=== PATIENT | female | born 1945 | race Caucasian/White ===

== ENCOUNTER 2023-07-18 15:42 | Outpatient (CLI) | payer MEDICARE, BC, SELFPAY ==
--- NOTE | 2023-07-18 16:00 | US_ITS ---
Patient: AURE COLLAZO Facility:?[facility] Patient ID:?[id number] Site Patient ID:?[id number]. Site :?[id number] Study:?US-OB Pelvis TV OB<14wks-07/18/2023 4:52:23 PM Ordering Physician:Brittany Molina Final Report: INDICATION: post menopausal bleeding COMPARISON: none TECHNIQUE: 2D jalloh scale and color Doppler images were acquired of the pelvis using a transabdominal and transvaginal approach. FINDINGS: Sonographic images demonstrate a normal size and smooth outer contour of the uterus. Uterus measures 4.9 cm in length by 2.1 cm in AP diameter by 3.8 cm in transverse dimension. The myometrium has a normal uniform echotexture. The endometrial lining measures 6.2 mm in composite thickness. Fluid is present within the endometrial canal. Cervical nabothian cysts noted. Hypoechoic nodular focus associated with the endometrium measuring 9 x 3 x 5 millimeters. No internal vascularity within this structure. The right ovary measures 1.3 x 1.0 x 0.9 cm in size and the left ovary measures 1.4 x 0.9 x 1.1 cm. The ovaries demonstrate normal arterial and venous blood flow on color Doppler analysis. There are no suspicious fluid collections within the cul-de-sac. IMPRESSION: Endometrium measures 6.2 millimeters. Fluid is present within the endometrial canal. Polyp versus blood clot within the endometrium measuring 9 x 3 x 5 millimeters. Dictated by Colby Lin MD @ 07/19/2023 10:14:20 AM Signed by:?Colby Lin MD @07/19/2023 10:14:20 AM (Electronic Signature)
== END 2023-07-18 15:43 | disposition home or self-care (01) ==
LOC: US 15:43
PROVIDERS: Visit Provider Obstetrics & Gynecology
DX: N95.0 Postmenopausal bleeding (principal); R93.89 Abnormal findings on diagnostic imaging of other specified body structures
CPT/HCPCS: 76830; 76856

== ENCOUNTER 2023-07-24 15:43 | Outpatient (CLI) | payer MEDICARE, BC, SELFPAY | END 2023-07-24 15:44 | disposition home or self-care (01) | PROVIDERS: PCP Nurse Practitioner Family; Visit Provider Nurse Practitioner Family | DX: Z01.818 Encounter for other preprocedural examination (principal); M81.0 Age-related osteoporosis without current pathological fracture; Z13.0 Encounter for screening for diseases of the blood and blood-forming organs and certain disorders involving the immune mechanism | CPT/HCPCS: 80053; 85025 ==

== ENCOUNTER 2023-07-26 06:50 | Day surgery (SDC) | payer MEDICARE, BC, SELFPAY ==
[2023-07-26 07:22] VITALS: BP 153/86; PULSE 94; RESP 20; TEMP 36.3; O2SAT 98
[2023-07-26 07:24] VITALS: BMI 26.6
[2023-07-26] MEDS: LACTATED RINGERS 1000 ML 1,000 ML 100 ML IV (07:40)
[2023-07-26] MEDS: SODIUM CHLORIDE 0.9 % (FLUSH) 10 ML SYRINGE IVF (07:40)
--- NOTE | 2023-07-26 08:50 | W.PM.H&PU ---
History & Physical Update History & Physical Update H&P Reviewed and patient assessed: No changes noted
[2023-07-26] MEDS: CEFAZOLIN 2 GM INJ IVP (10:14)
--- NOTE | 2023-07-26 10:39 | W.ANESCHARGE ---
Anesthesia Charges Start Date/Time Anesthesia Start Date: 07/26/23 Anesthesia Start Time: 09:59 Stop Date/Time Anesthesia Stop Date: 07/26/23 Anesthesia Stop Time: 10:39
[2023-07-26 10:40] VITALS: BP 129/79; PULSE 85; RESP 20; TEMP 36.1; O2SAT 97
--- NOTE | 2023-07-26 10:47 | W.ANESCHARGE ---
Anesthesia Charges Start Date/Time Anesthesia Start Date: 07/26/23 Anesthesia Start Time: 09:59 Stop Date/Time Anesthesia Stop Date: 07/26/23 Anesthesia Stop Time: 10:39 Summary Extremes of Age - Over 70 or under 1: MDA
--- NOTE | 2023-07-26 10:49 | P.GYNPRC_ITS ---
Procedure Note Date of procedure: 07/26/23 Will [facility] bill your pro fee for this procedure?: Yes Pre-op diagnosis: Postmenopausal bleeding suspected endometrial polyp on pelvic ultrasound Post-op diagnosis: Endometrial polyps Procedure: Hysteroscopy, polypectomy, visual dilation and curettage Anesthesia: MAC Complications: None Surgeon: Brittany Jiménez MD Estimated blood loss (mL): 0 IV fluids (mL): 500 Pathology: specimen obtained, sent to pathology (Endometrial curettings) Condition: stable Disposition: same day Findings: 1. On exam under anesthesia, stage III uterine prolapse was noted with cervix extending through vaginal introitus. There did not appear to be a rectocele, but there was an apparent enterocele. There were no palpable adnexal masses on bimanual exam, and uterus was normal texture and small size. 2. Upon hysteroscopy, the endocervix appeared normal. The endometrial cavity exhibited 2 small polyps, larger approximately 1 cm in greatest dimension. This was done was on the posterior fundal area, and another was on the left fundus and smaller. Procedure Description: Procedure in detail: Patient was taken to the operating room with IV running. She was positioned in dorsal lithotomy position with her legs fully supported in Yellofin stirrups. Monitored anesthesia care was administered. She was prepped and draped in the usual sterile fashion. Exam under anesthesia was performed for the above-noted findings. Speculum was inserted. Cervix visualized and grasped along the anterior lip with a single-tooth tenaculum. Speculum was then removed due to the extent of the uterine prolapse. Cervix was serially dilated to accommodate the TRUCLEAR hysteroscope. This was assembled with saline inflow and outflow in place. The line was flushed of bubbles. The hysteroscope was advanced through the cervix into the endometrial cavity for the above noted findings. The tissue morcellator was then inserted through the operating channel. Window lock was performed. Under direct visualization, the endometrial cavity was circumferentially curetted with the tissue morcellator. The hysteroscope and morcellator were then removed from the uterus. Tenaculum was removed from the anterior lip of cervix. Hemostasis was noted. Postoperative debrief was carried out, and I verbalized my request to send endometrial curettings to pathology. Patient tolerated procedure well. She was taken to recovery area in stable condition.
[2023-07-26 10:55] VITALS: BP 141/87; PULSE 83; RESP 20; TEMP 36.4; O2SAT 98
[2023-07-26 11:13] VITALS: BP 139/78; PULSE 84; RESP 20; O2SAT 98
== END 2023-07-26 11:30 | disposition home or self-care (01) ==
PROVIDERS: PCP Nurse Practitioner Family; Visit Provider Obstetrics & Gynecology
PROC: 0UDB8ZZ Extraction of Endometrium, Via Natural or Artificial Opening Endoscopic (ICD-10-PCS; CPT 58558; principal; 2023-07-26 09:30)
DX: N95.0 Postmenopausal bleeding (principal); N81.3 Complete uterovaginal prolapse; N84.0 Polyp of corpus uteri
CPT/HCPCS: 58558; 00952; 36415; 81025; 82565; 85018; 86850; 86900; 86901; 88305; 99100; J0690; J1100; J1885; J2250; J2405; J2704; J3010; J7120

== ENCOUNTER 2023-08-16 08:55 | Day surgery (SDC) | payer MEDICARE, BC, SELFPAY ==
[2023-08-16] VITALS (18 sets, daily range): BP systolic 75–147; BP diastolic 36–108; PULSE 77–95; RESP 12–18; TEMP 35.8–36.8; O2SAT 94–98; BMI 26.5
[2023-08-16] MEDS: LACTATED RINGERS 1000 ML 1,000 ML 100 ML IV ×2 (09:05→14:42)
[2023-08-16] MEDS: PHENAZOPYRIDINE HCL 200 MG TABLET PO (09:55)
[2023-08-16 10:21] LABS: Hemoglobin* 12.8 gm/dL (12.0-16.0)
[2023-08-16 10:38] LABS: Creatinine* 0.6 mg/dL (0.5-1.5); Est. Creatinine Clearance* 37.26; Estimated Glomerular Filt Rate 92 ml/min
--- NOTE | 2023-08-16 11:26 | W.PM.H&PU ---
History & Physical Update History & Physical Update H&P Reviewed and patient assessed: The following changes are noted below H&P Updates: Leonor had hysteroscopy, polypectomy, dilation and curettage approximately 2 weeks ago for finding of benign endometrial polyps. Otherwise, there are no changes in her health status.
[2023-08-16] MEDS: CEFAZOLIN 2 GM INJ IVP (12:13)
[2023-08-16] MEDS: VASOPRESSIN 20 UNIT/ML INJ INJECTION (12:40)
--- NOTE | 2023-08-16 13:34 | SUR.OPER ---
UTERUS 50G
[2023-08-16] MEDS: 0.9 % SODIUM CHLORIDE 50 ml INJECTION (13:36)
--- NOTE | 2023-08-16 15:05 | CRLHL7_ITS ---
For Patients: As a result of the Cures Act, medical imaging exams and procedure reports are released immediately into your electronic medical record. You may view this report before your referring provider. If you have questions, please contact your health care provider. INDICATION: Status post vaginal hysterectomy. Evaluation of ureter patency. TECHNIQUE: Abdomen four views following the administration of IV contrast. COMPARISON: None. FINDINGS: The degree of ureteral opacification is suboptimal for complete evaluation of the ureters. Soft tissues elsewhere as imaged are unremarkable. Nonobstructive bowel gas pattern. Visualized osseous structures are intact. IMPRESSION: Suboptimal opacification of the renal collecting systems for evaluation of the ureters. Follow-up CT urogram would be recommended to further evaluate the ureters, as indicated. Dictated by Raoul Boles MD @ 08/16/2023 4:15:11 PM (Electronically Signed)
--- NOTE | 2023-08-16 16:16 | W.ANESCHARGE ---
Anesthesia Charges Start Date/Time Anesthesia Start Date: 08/16/23 Anesthesia Start Time: 11:58 Stop Date/Time Anesthesia Stop Date: 08/16/23 Anesthesia Stop Time: 17:03 Summary Extremes of Age - Over 70 or under 1: MDA
[2023-08-16 16:26] LABS: Albumin* 4.4 g/dL (3.3-5.0); Chloride* 100 mmol/L (96-114); Sodium* 134 mmol/L (135-149)
[2023-08-16 16:27] LABS: Potassium* 3.5 mmol/L (3.6-5.1)
[2023-08-16 16:29] LABS: Alanine Aminotransferase* 22 U/L (4-35); Alkaline Phosphatase* 95 U/L (40-150); Anion Gap 6 mEq/L (7-15); Aspartate Amino Transferase* 29 U/L (12-35); Bilirubin Total* 0.6 mg/dL (0.1-1.5); Blood Urea Nitrogen* 18 mg/dL (7-30); Carbon Dioxide* 28 mmol/L (20-32); Creatinine* 0.6 mg/dL (0.5-1.5); Est. Creatinine Clearance* 37.26; Estimated Glomerular Filt Rate 92 ml/min; Glucose* 126 mg/dL (60-115); Total Protein* 7.8 g/dL (6.0-8.3)
[2023-08-16 16:30] LABS: Calcium* 8.7 mg/dL (8.4-10.6)
[2023-08-16] MEDS: DEXTROSE 50 % SYRINGE 150 GM INTRACATH (16:44)
[2023-08-16] MEDS: ESTROGENS, CONJUGATED VAGINAL 0.625 MG/G CREAM 1 APPLIC VAGINAL (16:47)
--- NOTE | 2023-08-16 17:11 | W.ANESCHARGE ---
Anesthesia Charges Start Date/Time Anesthesia Start Date: 08/16/23 Anesthesia Start Time: 11:58 Stop Date/Time Anesthesia Stop Date: 08/16/23 Anesthesia Stop Time: 17:03
[2023-08-16] MEDS: MEPERIDINE 25 MG/ML INJ 12.5 MG IVP (17:20)
[2023-08-16] MEDS: fentaNYL 100 MCG/2 ML inj 50 MCG IVP (17:30)
--- NOTE | 2023-08-16 18:58 | PC.NURSE ---
Pt arrived from surgery at 1753. Pt's family at bedside. Pt had complaints of pain in her back (3); repositioned for comfort. Abbott catheter in place; urine yellow. VSS. Bearhugger applied once Pt reached the floor.
[2023-08-16] MEDS: KETOROLAC 15 MG/ML inj IVP (21:25)
--- NOTE | 2023-08-16 21:43 | W.PM.GYNPROC ---
Procedure Note Date of procedure: 08/16/23 Will [facility] bill your pro fee for this procedure?: Yes Pre-op diagnosis: Uterovaginal prolapse: Stage III uterine prolapse, stage II cystocele Post-op diagnosis: Same Procedure: Total vaginal hysterectomy with bilateral salpingo-oophorectomy Anterior colporrhaphy Posterior colpoperineorrhaphy Cystoscopy Anesthesia: MAC and regional Complications: None Surgeon: Brittany Jiménez MD Legal Recovery Specialist: Cherelle Aviles Estimated blood loss (mL): 25 IV fluids (mL): 3,000 Urine Output (mL): 2,500 Pathology: specimen obtained, sent to pathology (Uterus, bilateral tubes and ovaries) Condition: stable Disposition: floor Findings: 1. On exam under anesthesia, stage III uterine prolapse was confirmed. Upon removal, the uterine weight was 50 g. Bilateral ovaries were quite small, and tubes were normal in appearance. 2. Upon cystoscopy, the bladder was enlarged and trabeculated, and the ureteral orifices were difficult to visualize. Despite administration of first Pyridium, then methylene blue, ureteral jets were not discolored by these agents. This led initially to request for intravenous pyelogram, which also failed to adequately demonstrate the collecting system down to the bladder. At the end of the procedure, the bladder was instilled with 100 mL of 50% dextrose solution, which did allow final visualization of bilateral ureteral jets. Procedure Description: Patient was taken to the operating room with IV running. She received cefazolin in preoperative prophylaxis. She was positioned on the operating table in dorsal lithotomy position with candy-cane stirrups. She was prepped and draped in the usual sterile fashion. Abbott catheter was inserted. Exam under anesthesia revealed the above-noted findings. The anterior and posterior lips of the cervix were grasped with thyroid Jose clamps. The cervicovaginal junction was infiltrated with a total of approximately 20 mL of dilute vasopressin. Cervicovaginal junction was incised with the scalp circumferentially. The vaginal epithelium was dissected off the uterosacral ligaments with a combination of blunt and sharp dissection bilaterally. The anterior colpotomy was performed sharply and a [place] was placed between the uterus and bladder. Posterior colpotomy was performed sharply and a long weighted speculum was placed in the cul-de-sac. Bilateral uterosacral ligaments were clamped, cut, and suture ligated, and tagged for later identification. The cardinal and remnants of the broad ligament bilaterally were clamped, cut, and suture ligated. This freed the uterus from its attachments and it was delivered through the vagina. Attention was 1st turned to the right tube and ovary, which was physically normal in appearance. The infundibulopelvic ligament was cauterized and transected with the LigaSure Impact device. The remnants of the broad ligament between the infundibulopelvic ligament and the tubal pedicle were also cauterized and transected with the LigaSure Impact device, freeing the specimen. Hemostasis of the pedicles noted. This procedure was repeated on the patient's left side and hemostasis was again noted. The bowels were moved out of the pelvis with packing and the patient was placed in Trendelenburg position. The 3 modified Goncalves's sutures were placed as follows. The 1st was placed approximately 1 cm medial to the left vaginal angle, through the left uterosacral ligament approximately 2.5 cm above the vaginal cuff, pulled through the peritoneum of the cul-de-sac, through the right uterosacral ligament, approximately 2.5 cm above the cuff, and through the vagina about 1 cm from the right vaginal cuff angle. This was labeled #1 and tagged for later identification. Another stitch was placed just medial to the 1st through the vaginal cuff, and just above the 1st along the uterosacral ligaments and the peritoneum of the cul-de-sac. This was labelled #2 and tagged for later identification. Finally, a Goncalves suture was placed, moving from the left uterosacral to the right uterosacral, along the peritoneum of the cul-de-sac, above the is the 2nd suture. This was labeled #3 and tagged for later identification. Attention was turned to the anterior vaginal wall. It was infiltrated with a total of 10 mL of Marcaine and epinephrine. An incision was made from the vaginal cuff proceeding to the urethrovesical junction. The vaginal epithelium was dissected off the fibromuscularis beneath it with a combination of first sharp, with then blunt dissection at the angles. This was done bilaterally. The fibromuscularis was then plicated in the midline with interrupted sutures of 0 Vicryl. The vaginal epithelium was trimmed slightly on the each side, and the vaginal epithelium was closed with a running stitch of 2-0 Vicryl. The first of several cystoscopies was performed, revealing no damage to the bladder mucosa. However, despite the patient having been given a dose of oral Pyridium prior to surgery, no ureteral jets were noted. The patient was subsequently given a dose of IV methylene blue. When, after at least 25 minutes of observation, there were no ureteral jets visualized, attempt was made to pass ureteral stents, which was unsuccessful due to the distorted anatomy of the bladder as described above. Given this, I became concerned for the patency of the ureters, and an intraoperative IVP was requested as described above. While waiting for the IVP to be performed, I did attempt to pass ureteral stents, but this was also unsuccessful. When the IVP was also unrevealing, I made the decision to remove all of the suspension sutures as I could not tied them down without confirmation of ureteral patency. The vaginal cuff was closed in interrupted fashion with 0 Vicryl, incorporating the distal uterosacral pedicles in to the angle closures. Hemostasis was noted. In lieu of the culdoplasty, a posterior colpoperineorrhaphy was performed. The vaginal epithelium was grasped laterally along the hymeneal ring with else clamps, and the apex of the posterior vaginal wall beneath the bulge of the rectum was grasped with Allis clamp as well. The intervening epithelium was infiltrated with 1% lidocaine with dilute epinephrine. An inverted triangle of vulvar skin was also excised on the anterior perineum after infiltration of lidocaine with epinephrine. The vulvar skin was excised sharply over the anterior perineum. The vaginal epithelium was incised in the midline, and was then dissected sharply, then bluntly, off the underlying fibromuscularis. The fibromuscularis was plicated in the midline using interrupted sutures of 2 0 Vicryl. The perineal body was also plicated in the midline in a similar fashion. Overlying epithelium was closed with a running stitch of 2 0 Vicryl. The vaginal introitus was still able to accommodate 3 examining fingers. Rectal exam confirmed absence of stitches in the rectum. Vaginal packing was placed which was coated in Premarin cream. Abbott catheter was inserted. Postoperative debrief was verbalized with OR staff, including a verification of pathology specimens to be sent as described above. The patient tolerated the procedure well and was taken to recovery area in stable condition.
[2023-08-16] MEDS: LORazepam 0.5 MG TABLET PO (22:48)
[2023-08-17 02:42] VITALS: BP 103/55; PULSE 87; RESP 16; TEMP 37; O2SAT 93
--- NOTE | 2023-08-17 06:47 | PC.NURSE ---
End of shift note [id number]: Pt alert & oriented x 4 and able to make needs known. She was independent with repositioning in bed and has Abbott catheter in place with urine noted to be pale yellow in color though urine noted to be more blue/green tinged this morning due to dye used during surgery yesterday. VSS and pt has been afebrile. Pt reported chronic back pain 3/10 when asked at start of shift though states pain improved after MD Jiménez removed packing from surgery earlier in the day per evening RN report. Pt denied pain the rest of the shift and refused scheduled dose of Toradol. PRN Melatonin offered for insomnia though pt refused stating, ?It gives me bad nightmares?. Pt transferring with SBA. Small amount of bloody drainage noted to romain pad this morning which was changed when pt toileted.
[2023-08-17 07:01] LABS: Hemoglobin* 10.6 gm/dL (12.0-16.0)
[2023-08-17 07:16] LABS: Creatinine* 0.6 mg/dL (0.5-1.5); Est. Creatinine Clearance* 37.26; Estimated Glomerular Filt Rate 92 ml/min
--- NOTE | 2023-08-17 08:32 | PM.GYNDS1 ---
DS: Providers Provider Date Seen: 08/17/23 Primary care physician: Deepali Shahid APRN, TELECOMMUNICATIONS MANAGER Attending Physician on discharge: Mona Calderon MD Date of Discharge: 08/17/23 DS: Diagnosis Discharge Diagnosis (1) S/P vaginal hysterectomy: Status: Acute Problem details: Total vaginal hysterectomy, bilateral salpingo-oophorectomy, anterior and posterior repairs CODING MACHINE OPERATOR-Discharge Summary Hospital Course Hospital Course Narrative: Patient is a 78 year old admitted on 08/16/23 for elective surgery. Indication for surgery: Pelvic Organ Prolapse. Intraoperative findings were notable for stage 3 uterine and stage 2 anterior vaginal wall prolapse. Ureteral jets were not initially seen during surgery even after PO Pyridium, IV Methylene Blue. Bilateral ureteral jets seen after instillation of 100 mL of 50% dextrose solution. She had an uncomplicated surgery. Postoperative course has been uneventful. Vitals have been stable. She has remained afebrile. Today, on postoperative day 1, she reports the pain is well controlled. She has been able to ambulate Without difficulty. She is tolerating regular diet. She is passing flatus. Abbott catheter has been removed, and she is voiding without difficulty. Time Spent with Patient Time attestation: Total time spent providing and/or coordinating discharge services: Time spent: Less than 30 minutes CODING MACHINE OPERATOR - Exam Physical Exam: Vital signs: Temp Pulse Resp BP Pulse Ox O2 Del Method 98.6 F 87 16 103/55 L 93 Room Air 08/17/23 02:42 08/17/23 02:42 08/17/23 02:42 08/17/23 02:42 08/17/23 02:42 08/17/23 02:42 Narrative: VITAL SIGNS: As noted above. GENERAL APPEARANCE: Alert, cooperative female in no acute distress. MOOD & AFFECT: Normal. ABDOMEN: Positive bowel sounds. Soft, non-distended and nontender. No pain with palpation of her CVAs bilaterally. : Minimal spotting. EXTREMITIES: Nonedematous. Well perfused. Nontender. Abbott catheter in place with green colored urine. Urine output adequate. CODING MACHINE OPERATOR - DS: Data Data Completed and Pending Labs on day of discharge: Labs from last 24 hours 08/17/23 08/16/23 08/16/23 06:50 15:50 10:10 Hgb 10.6 L 12.8 Sodium 134 L Potassium 3.5 L Chloride 100 Carbon Dioxide 28 Anion Gap 6 L BUN 18 Creatinine 0.6 0.6 0.6 Estimated Creat Clear 37.26 37.26 37.26 Estimated GFR 92 92 92 Glucose 126 H Calcium 8.7 Total Bilirubin 0.6 AST 29 ALT 22 Alkaline Phosphatase 95 Total Protein 7.8 Albumin 4.4 Blood Type A Negative Antibody Screen NEGATIVE Procedures Procedures: Procedures Operation Date: 08/16/23 10:25 Actual Procedure Side Surgeon p M/S-Total Vaginal Hysterectomy, Bilateral Salpingo-Oophorectomy, Anterior Colporrhaphy, Posterior Colporrhaphy, Cystoscopy Bilateral Brittany Jiménez MD Discharge Plan Discharge Disposition: Home w/ Parent or Adult Discharging Surgeon: Mona Calderon Follow-Up Appointment: Dr. Jiménez, [facility], August 30 @ 10:00 am Prescriptions: Continued multivitamin [Daily Multi-Vitamin] Tablet 1 tab PO QAM estradiol [Estrace] 0.01 % (0.1 mg/gram) cream 0.5 g vaginal 2XW Qty: 42.5 3RF Rx Instructions: Use nightly for 2 weeks, then twice weekly. May apply with finger. Activity Level: No Weight Bearing Activity Detail: No lifting more tha20 pounds for 6 weeks, nothing vaginally for 6 weeks. Discharge Diet: Regular Patient Instructions: Acetaminophen (By mouth), Laxative, Stool Softeners (By mouth), Vaginal Hysterectomy (DC) Follow-up: Brittany Jiménez MD [Staff Physician] - 08/31/23 10:00 am Deepali Shahid APRN, TELECOMMUNICATIONS MANAGER [Primary Care Provider] - Discharge Orders: Discharge Order (Routine); Ordered 08/17/23 Ordered By: Mona Calderon
[2023-08-17 09:45] VITALS: BP 127/72; PULSE 97; RESP 16; TEMP 37.3; O2SAT 98
[2023-08-17] MEDS: DOCUSATE SODIUM 100 MG CAPSULE PO (10:32)
[2023-08-17] MEDS: ACETAMINOPHEN 325 MG TABLET 650 MG PO (10:32)
[2023-08-17 13:09] VITALS: BP 131/77; PULSE 67; RESP 16; TEMP 37.1; O2SAT 97
== END 2023-08-17 14:23 | disposition home or self-care (01) ==
LOC: OR 08:55 → MEDSURG 08:57
PROVIDERS: PCP Nurse Practitioner Family; Visit Provider Obstetrics & Gynecology
PROC: 0TJB8ZZ Inspection of Bladder, Via Natural or Artificial Opening Endoscopic (ICD-10-PCS; CPT 57260; principal; 2023-08-16 10:15)
DX: N81.3 Complete uterovaginal prolapse (principal); N95.0 Postmenopausal bleeding; M81.0 Age-related osteoporosis without current pathological fracture
CPT/HCPCS: 58262; 57260; 00944; 36415; 74400; 80053; 82565; 85018; 86850; 86900; 86901; 88307; 99100; A9270; C1769; J0690; J1100; J1885; J1940; J2175; J2371; J2405; J2704; J3010; J3490; J7120; Q9967

== ENCOUNTER 2023-08-23 14:45 | Outpatient (CLI) | payer MEDICARE, BC, SELFPAY | END 2023-08-23 14:46 | disposition home or self-care (01) | LOC: NFLDREF 09-07 19:14 | PROVIDERS: PCP Nurse Practitioner Family; Referring Provider Nurse Practitioner Family; Visit Provider Obstetrics & Gynecology | DX: N89.8 Other specified noninflammatory disorders of vagina (principal); Z90.710 Acquired absence of both cervix and uterus | CPT/HCPCS: 87070 ==

== ENCOUNTER 2023-09-28 14:11 | Outpatient (CLI) | payer MEDICARE, BC, SELFPAY ==
[2023-09-28 14:18] LABS: Appearance Urine Clear (Clear); Bilirubin Urine Negative (Negative); Blood Urine 1+ (Negative); Color Urine Yellow (Yellow); Glucose Urine Negative (Negative); Ketones Urine Negative (Negative); Leukocyte Esterase Urine Negative (Negative); Nitrite Urine Negative (Negative); Protein Urine Negative (Negative); Urobilinogen Urine 0.2 (0.2-1.0)
[2023-09-28 14:22] LABS: RBC Urine 0-2 (0-2); WBC Urine 0-2 (0-5)
== END 2023-09-28 14:12 | disposition home or self-care (01) ==
PROVIDERS: PCP Nurse Practitioner Family; Visit Provider Obstetrics & Gynecology
DX: R39.89 Other symptoms and signs involving the genitourinary system (principal); Z90.710 Acquired absence of both cervix and uterus
CPT/HCPCS: 81001

== ENCOUNTER 2023-10-02 11:11 | Outpatient (CLI) | payer MEDICARE, BC, SELFPAY | END 2023-10-02 11:12 | disposition home or self-care (01) | LOC: NFLDREF 10-04 09:36 | PROVIDERS: PCP Nurse Practitioner Family; Referring Provider Nurse Practitioner Family; Visit Provider Obstetrics & Gynecology | DX: R31.29 Other microscopic hematuria (principal) | CPT/HCPCS: 87086 ==

== ENCOUNTER 2024-01-28 14:02 | Outpatient (CLI) | payer MEDICARE, BC, SELFPAY | END 2024-01-28 14:03 | disposition home or self-care (01) | PROVIDERS: PCP Nurse Practitioner Family; Visit Provider Obstetrics & Gynecology | DX: R33.9 Retention of urine, unspecified (principal); R32 Unspecified urinary incontinence | CPT/HCPCS: 87086 ==